=== PATIENT | male | born 1975 ===

== ENCOUNTER 2019-04-08 08:13 | Inpatient (IN) | payer BC ==
[~2019-04-08 08:13] MED LIST: Ketamine 50 MG in Sodium Chloride 0.9% 49.5 ML IV SCH; Ketamine 500 MG/5 ML MDV IV SCH
[2019-04-08] MEDS ORDERED: Gabapentin 300 MG Cap PO ONE (08:15)
[2019-04-08] MEDS ORDERED: Celecoxib 200 MG Cap PO ONE (08:15)
[2019-04-08] MEDS ORDERED: Scopolamine 1.5 MG Transdermal Patch TOP SCH (08:15)
[2019-04-08] MEDS ORDERED: Acetaminophen 500 MG Tab PO ONE (08:15)
[2019-04-08] MEDS ORDERED: Dextrose 5%-Lactated Ringers 1,000 ML IV SCH (08:30)
[2019-04-08] MEDS ORDERED: fentaNYL 250 MCG/5 ML SDV ONE (08:55)
[2019-04-08] MEDS ORDERED: Propofol 200 MG/20 ML SDV ONE (08:56)
[2019-04-08] MEDS ORDERED: Ondansetron 4 MG/2 ML SDV ONE (08:56)
[2019-04-08] MEDS ORDERED: Neostigmine Methylsulfate 1 MG/ML 5 ML Syringe ONE (08:56)
[2019-04-08] MEDS ORDERED: Glycopyrrolate 0.2 MG/ML 5 ML MDV ONE (08:56)
[2019-04-08] MEDS ORDERED: Midazolam 1 MG/ML 2 ML SDV ONE (08:56)
[2019-04-08] MEDS ORDERED: Dexamethasone 4 MG/ML SDV ONE (08:56)
[2019-04-08] MEDS ORDERED: Succinylcholine 200 MG/10 ML MDV ONE (08:56)
[2019-04-08] MEDS ORDERED: Rocuronium 50 MG/5 ML Vial ONE (08:56)
[2019-04-08] MEDS ORDERED: cefOXitin 2 GM Vial ONE (09:44)
[2019-04-08] MEDS ORDERED: cefOXitin 2 GM in Sodium Chloride 0.9% 50 ML IV ONE (10:00)
[2019-04-08] MEDS ORDERED: Lidocaine 0.4%/D5W 2 GM/500 ML BAG IV SCH (10:15)
[2019-04-08] MEDS ORDERED: Lidocaine 2% 100 MG/5 ML Syringe IVPUSH SCH (10:15)
[2019-04-08] MEDS ORDERED: Rocuronium 50 MG/5 ML Vial IV ONE (10:30)
[2019-04-08] MEDS ORDERED: hydrOXYzine HCl 100 MG/2 ML SDV IM ONE (12:14)
[2019-04-08] MEDS ORDERED: diphenhydrAMINE 50 MG/ML SDV IVPUSH PRN (13:51)
[2019-04-08] MEDS ORDERED: Metoclopramide 10 MG/2 ML SDV IVPUSH PRN (13:51)
[2019-04-08] MEDS ORDERED: HYDROmorphone 0.5 MG/0.5 ML Syringe IVPUSH PRN (13:51)
[2019-04-08] MEDS ORDERED: Labetalol 20 MG/4 ML Syringe IVPUSH PRN (13:51)
[2019-04-08] MEDS: HYDROmorphone 1 MG/ML Syringe IV PRN (14:13)
[2019-04-08] MEDS: Ondansetron 4 MG/2 ML SDV IVPUSH PRN (14:13)
[2019-04-08] MEDS: hydrOXYzine HCl 100 MG/2 ML SDV IM PRN (15:38)
[2019-04-08] MEDS: Gabapentin 250 MG/5 ML Solution ML 470 ML Bottle PO SCH ×2 (15:41→21:09)
[2019-04-08] MEDS: Heparin Sodium 5,000 Units/ML Vial SUBCUT SCH (15:42)
[2019-04-08] MEDS: Pantoprazole 40 MG Vial IVPUSH SCH (15:45)
[2019-04-08] MEDS: cefOXitin 2 GM in Sodium Chloride 0.9% 50 ML IV SCH ×2 (15:45→21:11)
[2019-04-08] MEDS: Acetaminophen Soln 650 MG/20.3 ML UD Cup PO SCH ×2 (15:52→21:10)
[2019-04-08] MEDS: MVI, Adult with Vitamin K 10 ML, Thiamine 200 MG, Chromium/Copper/Mang/Selen/Zn 1 ML in... IV SCH ×4 (15:53)
[2019-04-08] MEDS: Dextrose 5%-Lactated Ringers 1,000 ML IV SCH (22:50)
[2019-04-09] MEDS ORDERED: Iopamidol 612 MG/ML 50 ML SDV PO ONE (03:10)
[2019-04-09] MEDS: cefOXitin 2 GM in Sodium Chloride 0.9% 50 ML IV SCH ×2 (04:00→09:45)
[2019-04-09] MEDS: Acetaminophen Soln 650 MG/20.3 ML UD Cup PO SCH ×4 (04:01→21:40)
[2019-04-09] MEDS: Heparin Sodium 5,000 Units/ML Vial SUBCUT SCH ×2 (04:01→16:22)
[2019-04-09] MEDS: Dextrose 5%-Lactated Ringers 1,000 ML IV SCH (04:12)
--- NOTE | 2019-04-09 05:05 | CRLCR ---
Indication: Evaluate Meron-en-Y gastric bypass. Technique: Abdomen 3 view. Comparison: None. Findings: Postoperative changes Meron-en-Y gastric bypass. On the 1st image, enteric contrast is seen within the gastric pouch and proximal jejunal loops which are normal in caliber. After a 13 and 14 minute delay, the enteric contrast continues to progress within distal small bowel loops in the left lower quadrant. No evidence of contrast extravasation. Surgical drain in the left upper quadrant. Surgical clips right upper quadrant. Impression: Postoperative changes Meron-en-Y gastric bypass. Enteric contrast appears to flow easily into normal caliber distal small bowel loops. No evidence of contrast extravasation. Dictated by Sandra Murray MD @ Apr 10 2019 10:02AM Signed by Dr. Sandra Murray @ Apr 10 2019 10:07AM
[2019-04-09] MEDS ORDERED: Dextrose 5%-Lactated Ringers 1,000 ML IV SCH (08:00)
[2019-04-09] MEDS: buPROPion 150 MG Tab.SR PO SCH (09:45)
[2019-04-09] MEDS: Lisinopril 20 MG Tab PO SCH (09:45)
[2019-04-09] MEDS: Hydrochlorothiazide 12.5 MG Cap PO SCH (09:45)
[2019-04-09] MEDS: Celecoxib 200 MG Cap PO SCH (09:45)
[2019-04-09] MEDS: Gabapentin 250 MG/5 ML Solution ML 470 ML Bottle PO SCH ×3 (09:45→20:54)
[2019-04-09] MEDS: Citalopram 20 MG Tab PO SCH (09:45)
[2019-04-09] MEDS: SCOPOLAMINE PATCH CHECK TOP SCH (09:46)
[2019-04-09] MEDS: Ondansetron 4 MG/2 ML SDV IVPUSH PRN (10:15)
[2019-04-09] MEDS: HYDROmorphone 1 MG/ML Syringe IV PRN ×2 (11:22→21:40)
[2019-04-09] MEDS: Pantoprazole 40 MG Vial IVPUSH SCH (16:22)
[2019-04-09] MEDS: MVI, Adult with Vitamin K 10 ML, Thiamine 200 MG, Chromium/Copper/Mang/Selen/Zn 1 ML in... IV SCH ×4 (18:00)
[2019-04-10] MEDS: Acetaminophen Soln 650 MG/20.3 ML UD Cup PO SCH ×2 (04:20→10:07)
[2019-04-10] MEDS: Heparin Sodium 5,000 Units/ML Vial SUBCUT SCH (04:20)
--- NOTE | 2019-04-10 08:43 | DISCH ---
ADMISSION DIAGNOSES: 1. Morbid obesity, BMI is 42. 2. Depression. 3. Obstructive sleep apnea, on CPAP. 4. Essential hypertension. 5. History of H. pylori infection. DISCHARGE DIAGNOSIS: Laparoscopic sleeve gastrectomy and liver biopsy for morbid obesity and hepatomegaly. HISTORY: Dariel Ramirez is a pleasant 43-year-old male with longstanding history of morbid obesity and increasing comorbidities. After preoperative evaluation and discussion of possible risks and possible complications, he wished to proceed with surgical procedure. HOSPITAL COURSE: Dariel had his surgery on 04/08/2019. He had no operative complications. On postoperative day #1, he was started on a step 2 gastric bypass diet. His IV was decreased to 100 mL per hour. Home medications were started. He received dietary instructions. On postoperative day #2, he received a vitamin B12 1000 mcg IM injection. His pain was controlled. Vital signs were stable. Activity was good. He was able to be discharged to home. PHYSICAL EXAMINATION: GENERAL: Dariel Ramirez is a pleasant 43-year-old male. VITAL SIGNS: Height is 6 feet 1 inch, weight is 383 pounds, BMI is 50.5. TPR is 96.5, 58, 20, blood pressure 99/48. HEENT: Negative. NECK: Supple. HEART: Regular rate and rhythm. LUNGS: Clear. ABDOMEN: Incisions look good. Sutures in place. 4 x 4 over BRITNEY drain site. Abdominal binder is on. EXTREMITIES: Without peripheral edema. DISPOSITION: Discharged to home. CONDITION: Stable and improving. FOLLOWUP: Followup appointment with Sandra Banuelos PA-C, at [facility] on 04/23/2019 at 10 a.m. HOME MEDICATIONS: 1. Tylenol 650 mg q.6 hours p.r.n. pain. 2. Wellbutrin SR 150 mg b.i.d. 3. Celebrex 200 mg orally one daily for 14 days. 4. Citalopram 40 mg oral daily. 5. Clobetasol one film topical as directed p.r.n. rash. 6. Lidex 0.05% cream one film as directed for rash. 7. Lisinopril/hydrochlorothiazide 20/12.5 mg one tablet daily. 8. Paroxetine HCL one film topical every 3 hours p.r.n. itching. 9. Hydroxyzine 25 to 50 mg oral every 6 hours p.r.n. itching. DIET: Step 2 gastric bypass diet with no cereal for 30 days until 05/09/2019. Drink 8 to 10 glasses of water a day. ACTIVITY AFTER DISCHARGE: No lifting over 10 pounds for 2 weeks. Walk at least 6 times daily inside your home. Driving: Do not drive for 1 week. Shower/bathing: May shower. DISCHARGE INSTRUCTIONS: Notify provider if any fever, increased pain, swelling, redness, nausea, or vomiting. Keep site clean and dry. Wear abdominal binder for 2 weeks and then as tolerated. SPECIAL INSTRUCTIONS: Use incentive spirometer 10 times every hour while awake for 1 week.
[2019-04-10] MEDS: Gabapentin 250 MG/5 ML Solution ML 470 ML Bottle PO SCH (08:45)
[2019-04-10] MEDS: buPROPion 150 MG Tab.SR PO SCH (08:46)
[2019-04-10] MEDS: Citalopram 20 MG Tab PO SCH (08:46)
[2019-04-10] MEDS: Celecoxib 200 MG Cap PO SCH (08:46)
[2019-04-10] MEDS: Lisinopril 20 MG Tab PO SCH (08:47)
[2019-04-10] MEDS: Hydrochlorothiazide 12.5 MG Cap PO SCH (08:47)
[2019-04-10] MEDS: SCOPOLAMINE PATCH CHECK TOP SCH (08:57)
[2019-04-10] MEDS ORDERED: Cyanocobalamin (Vitamin B12) 1,000 MCG/ML SDV IM ONE (09:00)
[2019-04-10] MEDS: hydrOXYzine HCl 100 MG/2 ML SDV IM PRN (10:43)
--- NOTE | 2019-04-15 13:26 | OR ---
DATE OF PROCEDURE: 04/08/2019 PREOPERATIVE DIAGNOSIS: Morbid obesity. POSTOPERATIVE DIAGNOSES: 1. Morbid obesity. 2. Marked hepatomegaly. OPERATIVE PROCEDURES: 1. Laparoscopic sleeve gastrectomy. 2. Michael-Cut needle liver biopsy. ANESTHESIA: General. PIG CASTER: Sandra Banuelos PA-C. INDICATIONS FOR PROCEDURE: This is a 43-year-old presenting with longstanding morbid obesity with increasingly significant comorbidities. After preoperative evaluation and discussion, the patient wished to proceed with a laparoscopic sleeve gastrectomy. Potential risks including bleeding, infection, leaks from various GI tract closures, problems with bowel obstruction overtime as well as the possibility of cardiopulmonary, septic, or hemorrhagic complications leading to were discussed, and the patient wishes to proceed. DETAILS OF PROCEDURE: The patient was taken to the operating room and placed in a supine position. After general endotracheal anesthesia was induced, he was converted to a lithotomy position, and the abdomen was prepped and draped. 15 cm inferior and 5 cm left of the xiphoid process, a transverse incision was made. The peritoneal cavity was entered under direct vision with an Optiview trocar and inflated to 15 mmHg pressure with CO2. Laparoscope was reinserted and no underlying trocar insertion site injuries were seen. Following this, 5 additional trocars were placed across the upper and midabdomen. Bilateral transversus abdominis plane blocks were placed. The patient was noted to have marked hepatomegaly with liver volume being roughly 2 to 3 times normal. Liver was somewhat edematous and grossly fatty infiltrated. Michael-Cut needle biopsies were obtained from the left lobe of liver. Minimal bleeding from the biopsy sites was controlled with electrocautery. The liver was then retracted anteriorly. The patient was noted to have no significant hiatal hernia present. Beginning in the mid-greater curvature, the omentum was then divided away from the stomach with Harmonic Scalpel. This dissection continued upward through the short gastric vessels including the highest and posterior short gastric vessels and then included colonization of left jovita of the diaphragm for a segment of several centimeters, to limit any adherence of the gastric fundus and cardia into that area to allow a satisfactory subsequent resection. The pyloric channel was then identified, and the stomach marked 2 cm proximal to that. The greater omentum was then divided down to 0.2 cm proximal to the pylorus. At this point, the resection began. The of the antrum and then extending leftward toward the area beneath the incisura angularis was made with care taken to avoid overtightening of resection at that level. The first 3 firings were with JESSE black loads. Following this then, a 32-[place] suction tube was placed orally and positioned along the lesser curvature of the stomach and then from there into the fundus. This was pulled up against the lesser curvature of the stomach and then suction applied. The remainder of the gastrectomy resection was then accomplished with reinforced black and reinforced purple loads and, at that point, the resection was completed. The staple line was inspected and found to be intact. Good hemostasis was evident. At this point, fibrin sealant was placed along the length of the staple line, focusing on the area of the esophagogastric junction. The omentum was pulled up along the entire length of the staple line as well and it became adherent to that by means of the fibrin sealant. The suction was taken off the gastrointestinal balloon catheter with the gastrectomy staple line being submerged with antibiotic-containing saline solution and the pylorus being compressed. Air was injected and no leaks or other problems were noted. The catheter was then withdrawn. A single Juan-Rdo drain was then placed through the left lateral trocar site after removal of the gastric specimen. At that point, no further problems were noted. Trocars were removed. Fascia at the 12 and 15 mm trocar sites were closed with 0 Vicryl stitch, and the skin with 4-0 Vicryl skin stitch. Dressing was applied. The patient was taken to the recovery room in a satisfactory condition. There were no evident complications. Physician assistant media planner, Sandra Banuelos, played an essential role in assisting in this case, helping to position the patient, retract structures as needed, as well as suturing and cutting sutures when indicated. Her presence improved patient safety and decreased the operative time. Tristin Deshpande MD /[id number]
--- NOTE | 2019-04-15 14:31 | PN ---
DATE OF SERVICE: 04/09/2019 The patient is postoperative day #1 from a laparoscopic sleeve gastrectomy and liver biopsy. Clinically, he has had no problems overnight and will be advanced up to a step-2 diet today. IV will be turned down. We will restart his pertinent oral medications. He will likely be ready for discharge home tomorrow. Pain control is adequate with the combination of the Celebrex, gabapentin, and Tylenol. Tristin Deshpande MD /[id number]
== END 2019-04-10 12:35 | disposition home or self-care (01) | DRG 403 ==
LOC: JP.SDS 08:13 → JP.SDSSCHI 08:13 → EDSTATUS 09:00 → JP.2SS 11:55
PROVIDERS: ADMIT Surgery; ATTEND Surgery
PROC: 0DB64Z3 Excision of Stomach, Percutaneous Endoscopic Approach, Vertical (ICD-10-PCS; principal; 2019-04-08)
PROC: 0FB24ZX Excision of Left Lobe Liver, Percutaneous Endoscopic Approach, Diagnostic (ICD-10-PCS; 2019-04-08)
DX: E66.01 Morbid (severe) obesity due to excess calories (principal); R16.0 Hepatomegaly, not elsewhere classified; Z68.41 Body mass index [BMI] 40.0-44.9, adult; I10 Essential (primary) hypertension; G47.33 Obstructive sleep apnea (adult) (pediatric); F32.9 Major depressive disorder, single episode, unspecified; K44.9 Diaphragmatic hernia without obstruction or gangrene; Z87.891 Personal history of nicotine dependence; Z79.899 Other long term (current) drug therapy
CPT/HCPCS: 36415; 74240; 82962; 86850; 86900; 86901; 88307; 88313; 94762; A9270-GY; C9113; J0171; J0330; J0694; J1100; J1170; J1644; J2001; J2250; J2405; J2704; J2710; J2765; J2795; J3010; J3410; J3411; J3420; J3490; J7042; J7050; Q9967